=== PATIENT | female | born 1960 | race Caucasian/White ===

== ENCOUNTER 2022-01-29 17:17 | Emergency (ER) | payer SELFPAY ==
[~2022-01-29] VITALS: Ht 165.1 cm; Wt 61.0 kg
[2022-01-29 17:27] VITALS: BP 101/77
== END 2022-01-30 04:57 | disposition left against medical advice (07) ==
LOC: ER 17:17
DX: Z53.21 Procedure and treatment not carried out due to patient leaving prior to being seen by health care provider (principal); Z98.890 Other specified postprocedural states